=== PATIENT | female | born 1965 | race American Indian/Alaskan Native ===

== ENCOUNTER 2017-08-29 10:11 | Day surgery (SDC) | payer MEDICARE ==
--- NOTE | 2017-08-29 12:12 | Anesthesia Day of Surgery ---
Anesthesia Day of Surgery - Day of Surgery Patient Examined: Yes Patient H&P Reviewed: Yes Patient is NPO: Yes
--- NOTE | 2017-08-29 12:12 | Anesthesia Consultation ---
Anesthesia Consult and Med Hx Date of service: 08/29/17 - Airway Anesthetic Teeth Evaluation: Good ROM Head & Neck: Adequate Mental/Hyoid Distance: Adequate Mallampati Class: Class II Intubation Access Assessment: Good - Pulmonary Exam CTA: Yes - Cardiac Exam Cardiac Exam: RRR - Pre-Operative Health Status ASA Pre-Surgery Classification: ASA3 Proposed Anesthetic Plan: General - Pulmonary Hx Smoking: Yes (4-1/2PPD X 30 YRS) COPD: Yes (ON H&P , BUT PT DENIES) Hx Sleep Apnea: Yes (DX SLEEP APNEA , NO CPAP) - Cardiovascular System Hx Hypertension: Yes (X 10 YRS) Hx Angina: Yes (RARE) Hx Heart Murmur: Yes - Central Nervous System Hx Back Pain: Yes - Hematic Hx Anemia: Yes (NOT RECENT) Hx Sickle Cell Disease: No (SC TRAIT ONLY) - Other Systems Hx Alcohol Use: Yes Hx Substance Use: Yes (OCC MARIJUANA) Hx Cancer: No
[2017-08-29 12:35] LABS: INR 0.95 (0.87-1.13)
[2017-08-29 12:36] LABS: BUN/Creatinine Ratio 20; Blood Urea Nitrogen 14 mg/dL (7-17); Calcium 9.6 mg/dL (8.4-10.2); Carbon Dioxide 26 mmol/L (22-30); Glucose 80 mg/dL (65-100); Partial Thromboplastin Time 23.8 Sec. (24.2-36.6)
[2017-08-29 12:37] LABS: Anion Gap 17 mmol/L; Chloride 103.7 mmol/L (98-107); Potassium 3.9 mmol/L (3.6-5.0); Sodium 143 mmol/L (137-145)
[2017-08-29] MEDS ORDERED: VANCOMYCIN/NS 1 GM/250 ML 1 GM/250 ML BAG IV NR (13:00)
[2017-08-29] MEDS ORDERED: PEPCID PO NR (13:00)
[2017-08-29] MEDS ORDERED: NEURONTIN PO NR (13:00)
[2017-08-29] MEDS ORDERED: LACTATED RINGERS 1,000 ML IV SCH (13:00)
[2017-08-29] MEDS ORDERED: VERSED IV NR (13:00)
[2017-08-29] MEDS: DILAUDID IV SCH ×4 (13:06→15:23)
[2017-08-29] MEDS ORDERED: MARCAINE-EPI/PF 0.5%-1:200,000 INFILTRATI ONE (13:37)
[2017-08-29] MEDS ORDERED: DECADRON ONE (13:37)
[2017-08-29] MEDS ORDERED: DILAUDID ONE (14:03)
[2017-08-29] MEDS ORDERED: DIPRIVAN 10 MG/ML IV ONE (14:05)
--- NOTE | 2017-08-29 14:39 | Short Stay Summary ---
Short Stay Documentation - Allergies and Medications Current Medications: Allergies Penicillins Allergy (Verified 08/28/17 15:04) Itching Home Medications Medication Instructions Recorded Confirmed Last Taken Type ALBUTEROL Inhaler [Proair] 2 puff IH QID PRN 08/28/17 08/29/17 07/22/17 History Aspirin [Adult Low Dose Aspirin EC] 81 mg PO DAILY 08/28/17 08/29/17 08/27/17 History Atenolol [Tenormin] 150 mg PO DAILY 08/28/17 08/28/17 08/28/17 History Cholecalciferol Vit D3 [Vitamin D3] 2,000 unit PO QDAY 08/28/17 08/29/17 History Citalopram [celeXA] 20 mg PO BID 08/28/17 08/28/17 08/28/17 History Gabapentin [Neurontin] 300 mg PO TID 08/28/17 08/28/17 08/28/17 History Glatiramer Acetate [Copaxone] 40 mg SQ 3XW 08/28/17 08/29/17 1 Month Ago History Hydroxychloroquine [Plaquenil] 200 mg PO QDAY 08/28/17 08/29/17 1 Week Ago History Lisinopril/Hydrochlorothiazide 1 each PO DAILY 08/28/17 08/29/17 08/27/17 History [Zestoretic 20-12.5 mg] Omeprazole Magnesium [PriLOSEC Otc] 20 mg PO QDAY 08/28/17 08/29/17 08/27/17 History Ranitidine HCl [Acid Licensed Nuclear Control Room Operator] 150 mg PO BID 08/28/17 08/28/17 08/28/17 History Simvastatin [Zocor TAB] 20 mg PO QHS 08/28/17 08/29/17 08/26/17 History predniSONE [Deltasone] 5 mg PO DAILY 08/28/17 08/28/17 08/28/17 History Active Medications Celecoxib (Celebrex) 200 mg PO PREOP NR Stop: 08/29/17 23:59 Last Admin: 08/29/17 12:33 Dose: 200 mg Famotidine (Pepcid) 20 mg PO PREOP NR Stop: 08/29/17 23:59 Last Admin: 08/29/17 12:33 Dose: 20 mg Gabapentin (Neurontin) 300 mg PO PREOP NR Stop: 08/29/17 23:59 Last Admin: 08/29/17 12:33 Dose: 300 mg Hydromorphone HCl (Dilaudid) 0.5 mg IV Q5MIN NANDO Last Admin: 08/29/17 13:06 Dose: 0.5 mg Lactated Ringer's (Lactated Ringers) 1,000 mls @ 100 mls/hr IV DIRECT NANDO Last Admin: 08/29/17 12:33 Dose: 100 mls/hr Vancomycin HCl (Vancomycin/Ns 1 Gm/250 Ml) 1 gm in 250 mls @ 167.007 mls/hr IV PREOP NR PRN Reason: Protocol Stop: 08/29/17 23:59 Last Admin: 08/29/17 13:42 Dose: 167.007 mls/hr Midazolam HCl (Versed) 2 mg IV PREOP NR Stop: 08/29/17 23:59 Last Admin: 08/29/17 13:25 Dose: 2 mg Short Stay Discharge Plan Activity: advance as tolerated Weight Bearing Status: Weight Bear as Tolerated Diet: advance as tolerated, other (go to previous diet as tolertaed) Wound: keep clean and dry, change dressing, other (dressing change after 48 hours, clean with alcohol wipes and apply clean dressing.) Special Instructions: physical therapy (continue PT for your knee as scheduled Home PT.) Durable Medical Equipment Needed Upon Discharge: Cane Additional Instructions: TAKE PAIN MEDS PRN, ICE PACS. ROM exercises of the knee. Follow up with: ANAYA LÓPEZ MD [Primary Care Provider] - 7 Days DARREN FRITZ MD [Staff Physician] - 14 Days
[2017-08-29] MEDS ORDERED: TORADOL ONE (14:43)
[2017-08-29] MEDS ORDERED: XYLOCAINE MPF 2% ONE (14:43)
[2017-08-29] MEDS ORDERED: ZOFRAN ONE (14:43)
[2017-08-29] MEDS ORDERED: PERCOCET 5/325 PO ONE (15:27)
--- NOTE | 2017-08-29 15:42 | Post Anesthesia Evaluation ---
- Post Anesthesia Evaluation Patient Participated: Yes Airway Patent: Yes Stable Respiratory Function: Yes Nausea/Vomiting: No Temp > 96.8F: Yes Pain Manageable: Yes Adequeate Hydration: Yes Anesthesia Complications: No
[2017-08-29 16:40] VITALS: BP 97/65
--- NOTE | 2017-09-13 08:31 | Operative Report ---
PREOPERATIVE DIAGNOSIS: Minimal wound dehiscence of the right knee wound, status post total knee replacement. POSTOPERATIVE DIAGNOSIS: Minimal wound dehiscence of the right knee wound, status post total knee replacement. PROCEDURES PERFORMED: Irrigation and debridement of the right knee wound of about 4-5 cm and primary closure. BRIEF HISTORY: The patient had total knee replacement and had been recovering well, but ended up having a minimal wound dehiscence and because of her transportation reasons, she cannot go to the [facility] and will be deemed important to do the irrigation and debridement and then closure to prevent any higher risk of infection. The patient elected for it. Risks and benefits discussed, informed consent obtained, and brought to the hospital for the above procedure. DETAILS OF THE OPERATIVE REPORT: The patient was taken to the operating room. After smooth general endotracheal anesthesia, all the bony prominences were carefully padded and placed supine on the operating table. Thigh tourniquet was placed, but tourniquet was not used and the patient was given a gram of antibiotic half an hour before the procedure. Right knee and right lower extremity were prepped and draped in sterile fashion. The wound was identified to be about 5-7 cm long with 2-3 cm opening on the superior aspect of the wound. The wound margins were debrided off and fresh bleeding surface was achieved. It only went to subcutaneous deep. There was no underlying fascia exposed. Extensor mechanism was not exposed. It was only a minimal wound dehiscence at the superior aspect of the wound and thorough washing was done with antibiotic-soaked normal saline followed by normal saline. Fresh margins were achieved and the closure was commenced with a combination of PDS suture and nylon suture in a horizontal mattress fashion. Good approximation of the wound was achieved. Washing was done with normal saline and closure was commenced and dressing was done with Xeroform, 4 x 4, ABD, Kerlix and Luis Miguel wrap. The patient tolerated the procedure well, shifted to recovery room in stable condition. Sponge and needle count was correct. JOB# [id number] MANUEL/ROGERS
== END 2017-08-29 17:25 | disposition home or self-care (01) ==
LOC: OR 10:11
PROVIDERS: ATTEND Orthopaedic Surgery
DX: T81.30XA Disruption of wound, unspecified, initial encounter (principal); Y83.8 Other surgical procedures as the cause of abnormal reaction of the patient, or of later complication, without mention of misadventure at the time of the procedure; F17.210 Nicotine dependence, cigarettes, uncomplicated; J44.9 Chronic obstructive pulmonary disease, unspecified; I10 Essential (primary) hypertension; Z79.01 Long term (current) use of anticoagulants; Z72.89 Other problems related to lifestyle
CPT/HCPCS: 11042; 12020; 36415; 64450; 80048; 85610; 85730; 87075; 87116; J1100; J1170; J1885; J2250; J2405; J2704; J3370; J7120

== ENCOUNTER 2022-01-23 09:09 | Day surgery (SDC) | payer MEDICARE ==
[2022-01-23] MEDS ORDERED: SODIUM CHLORIDE 0.9% 500 ML 500 ML IV ONE (09:53)
[2022-01-23] MEDS ORDERED: ATROPINE 1 MG/ML VIAL IV NR (09:53)
[2022-01-23] MEDS ORDERED: NITROGLYCERIN 0.4 MG TAB SUBL SL ONE (09:53)
[2022-01-23] MEDS ORDERED: METOPROLOL TARTRATE 5 MG/5 ML INJ IV NR (10:00)
[2022-01-23] MEDS ORDERED: METOPROLOL TARTRATE 50 MG TAB PO NR (10:00)
[2022-01-23 11:23] LABS: Blood Urea Nitrogen 18 mg/dL (7-17)
[2022-01-23 12:13] VITALS: BP 144/66
--- NOTE | 2022-01-23 17:18 | Cat Scan Report ---
CTA HEART OVER-READ TECHNIQUE: All CT scans at this location are performed using CT dose reduction for ALARA by means of automated e xposure control. COMPARISON: None available. FINDINGS: LUNGS BASES: No significant abnormality. SOFT TISSUES: No significant abnormality. SKELETAL STRUCTURES: No acute osseous abnormality. ADDITIONAL FINDINGS: None. IMPRESSION: 1. No significant extracardiac abnormality. Cardiac findings reported separately by Cardiology. Signer Name: Ruddy Dennis MD Signed: 01/23/2022 5:14 PM Workstation Name: [id number]
--- NOTE | 2022-01-29 08:30 | CT Calcium Scoring Report ---
Coronary Calcium Score Date of service: 01/29/22 Procedure: High-resolution computed tomographic imaging of the chest was performed on01/23/22 with particular attention paid to the coronary arteries. Images from the examination were analyzed for the presence and extent of coronary artery calcification, using coronary calcium quantification software. The patient tolerated the procedure well and there were no complications. The results of the coronary calcification analysis are provided below. The patient scores are compared with published data related to scores for people of a similar age and the same gender. - Findings Left Circumflex(LCX): 81.8 Total Agatson Score: 81.8 Percentile Rankin Findings: Cardiac CTA Indication: chest pain Informed consent obtained Procedure: The patient was brought to the cardiac ct laboratory at [facility] in stable condition after a 4 hour fast. Heart rate was regulated by beta blockade. Sublingual ngt was administered. After data acquisition and reconstruction, the images were processed and reviewed on the computer workstation. Multiple phases of the cardiac cycle were assessed for image interpretation. Volume rendered images, multiplanar reformated images, and maximum intensity projections images were generated and reviewed A coronary calcium score was performed via the Agatston method. A separate radiology assessment of the non cardiac structures in the field of view will be provided. Superior vena cava in the field of view appears normal Inferior vena cava in the filed of view appears normal Ascending aorta in the field of view appears normal in size. mild calcification in the ascending aorta Descending aorta in the field of view appears normal in size. mild calcification in the descending aorta Pulmonary artery in the filed of view appears normal Pulmonary veins enter the left atrium appropriately Left ventricle appears normal Right Ventricle appears normal Left atrium appears normal Left atrial appendage appears normal Right atrium appears normal Interventricular septum appears normal Interatrial septum appears normal Aortic valve appears normal Mitral Valve appears normal Intracardiac mass: none Pericardial effusion: none Coronary Angiography: Dominance:right Origins:normal Left main: normal Left anterior descending coronary artery and diagonal branches: normal Circumflex coronary artery and obtuse marginal branches: dense calcific plaque in proximal circumflex. assessment rendered difficult by motion artifact but the plaque appears to be non obstructive Right coronary artery: normal the procedure was tolerated well. there were no procedural complications
== END 2022-01-23 09:10 | disposition home or self-care (01) ==
LOC: CT 09:09 → CATHLABREC 09:09 → EDSTATUS 09:45
PROVIDERS: ATTEND Specialist
DX: I47.1 Supraventricular tachycardia (principal); R07.89 Other chest pain; G43.909 Migraine, unspecified, not intractable, without status migrainosus; E78.00 Pure hypercholesterolemia, unspecified; I10 Essential (primary) hypertension; G47.30 Sleep apnea, unspecified; K21.9 Gastro-esophageal reflux disease without esophagitis; M06.9 Rheumatoid arthritis, unspecified; F32.9 Major depressive disorder, single episode, unspecified; F41.9 Anxiety disorder, unspecified; Z72.89 Other problems related to lifestyle; Z96.651 Presence of right artificial knee joint; Z98.890 Other specified postprocedural states; Z86.2 Personal history of diseases of the blood and blood-forming organs and certain disorders involving the immune mechanism
CPT/HCPCS: 36415; 75574; 82565; 84520; Q9967; J9280; J7040